=== PATIENT | female | born 1970 | race Caucasian/White ===

== ENCOUNTER → 2021-09-27 03:53 | Outpatient (CLI) | payer OTHER, SELFPAY ==
[2021-09-27 21:56] LABS: SARS-CoV-2 RNA PCR Positive
== END ==
PROVIDERS: PCP Emergency Medicine; Visit Provider Emergency Medicine
DX: U07.1 COVID-19 (principal)
CPT/HCPCS: C9803; U0003; U0005

== ENCOUNTER → 2021-10-03 01:11 | Outpatient (CLI) | payer OTHER, SELFPAY ==
[2021-10-03 18:23] LABS: SARS-CoV-2 RNA PCR Negative
== END ==
PROVIDERS: PCP Emergency Medicine; Visit Provider Emergency Medicine
DX: Z20.822 Contact with and (suspected) exposure to COVID-19 (principal)
CPT/HCPCS: C9803; U0003; U0005